=== PATIENT | male | born 1975 | race African-American/Black ===

== ENCOUNTER 2016-11-09 14:15 | Emergency (ER) | payer OTHER, MEDICAID ==
[~2016-11-09] VITALS: Ht 177.8 cm; Wt 81.0 kg
[~2016-11-09 14:15] MED LIST: DIPH50CA38; RISP2; SERT-112
[2016-11-09 16:30] VITALS: BP 118/77
== END 2016-11-09 16:31 | disposition home or self-care (01) ==
LOC: ER 16:13
DX: Z76.0 Encounter for issue of repeat prescription (principal); F20.9 Schizophrenia, unspecified; F17.210 Nicotine dependence, cigarettes, uncomplicated; F12.90 Cannabis use, unspecified, uncomplicated; Z88.0 Allergy status to penicillin; Z86.59 Personal history of other mental and behavioral disorders; Z98.890 Other specified postprocedural states
CPT/HCPCS: 99283